=== PATIENT | female | born 1960 | race Caucasian/White ===

== ENCOUNTER 2022-12-18 11:46 | Emergency (ER) | payer MEDICAID, SELFPAY ==
[2022-12-18 11:49] VITALS: BP 151/93; PULSE 91; RESP 24; TEMP 36.8; O2SAT 94; BMI 27.0
--- NOTE | 2022-12-18 11:54 | XR_ITS ---
The [address] [address] Patient Name: CLAUDIO CONKLIN MRN: [id number] date: 1960 Sex: F Assigned Patient Location: ER Current Patient Location: ER Accession/Order Number: [id number] Exam Date: 12/18/2022 12:00 Report Date: 12/18/2022 12:30 At the request of: MATHIEU ISABEL Procedure: XR chest 2V EXAMINATION: XR chest 2V, XR ribs RT 2V 12/18/2022 9:26 AM PDT HISTORY: fall rib pain COMPARISONS: PET/CT 04/01/[address] 08/02/2019. FINDINGS: Lines and tubes: None. Heart and mediastinum: The heart and the mediastinum are normal for technique. Lungs and pleura: The lungs are clear. There is no evidence of pneumonia or pulmonary edema. There is no pleural effusion or pneumothorax. Bones: No acute osseous abnormality. RIGHT RIBS: Healed right-sided rib fractures noted. No acute appearing displaced rib fracture. IMPRESSION: 1. No acute cardiopulmonary disease. 2. Healed right-sided rib fractures are present. No acute appearing displaced right rib fracture demonstrated. Electronically authenticated by: CHRISTIANA WOODWARD Date: 12/18/2022 12:30
--- NOTE | 2022-12-18 11:54 | XR_ITS ---
The [address] [address] Patient Name: CLAUDIO CONKLIN MRN: [id number] date: 1960 Sex: F Assigned Patient Location: ER Current Patient Location: ER Accession/Order Number: [id number] Exam Date: 12/18/2022 12:00 Report Date: 12/18/2022 12:30 At the request of: MATHIEU ISABEL Procedure: XR ribs RT 2V EXAMINATION: XR chest 2V, XR ribs RT 2V 12/18/2022 9:26 AM PDT HISTORY: fall rib pain COMPARISONS: PET/CT 04/01/[address] 08/02/2019. FINDINGS: Lines and tubes: None. Heart and mediastinum: The heart and the mediastinum are normal for technique. Lungs and pleura: The lungs are clear. There is no evidence of pneumonia or pulmonary edema. There is no pleural effusion or pneumothorax. Bones: No acute osseous abnormality. RIGHT RIBS: Healed right-sided rib fractures noted. No acute appearing displaced rib fracture. IMPRESSION: 1. No acute cardiopulmonary disease. 2. Healed right-sided rib fractures are present. No acute appearing displaced right rib fracture demonstrated. Electronically authenticated by: CHRISTIANA WOODWARD Date: 12/18/2022 12:30
--- NOTE | 2022-12-18 11:56 | ED_ITS ---
HPI - Fall General Chief Complaint: Fall Stated Complaint: RIB PAIN FALL Time Seen by Provider: 12/18/22 11:56 Source: patient Mode of arrival: walk-in Limitations: no limitations History of Present Illness HPI Narrative: patient's here for injury to her right ribs after a fall this morning. She believes she just rolled out of bed this morning before really getting up. She does not any pain in her hip or the other extremities per the nursing record. He does have other medical problems as noted however does not have any shortness of breath or anterior chest pain today. the patient states she did not hit her h ead and has no pain in her neck. She's says she was restless because she was exhausted from a family yesterday. She has previous rib fractures on the right side number of years ago. She says it hurts to take a deep breath but doesn't really have any shortness of breath. MD complaint: Reports fall Prolonged down time: Reports no Symptoms prior to fall: Reports none Location of injury: Reports chest Related Data Home Medications Medication Instructions Recorded Confirmed albuterol sulfate 90 mcg/actuation 2 inh inhalation BID PRN shortness 12/18/22 12/18/22 aerosol inhaler (Ventolin HFA) of breath or wheezing alendronate 70 mg tablet 70 mg PO QWEEK 12/18/22 12/18/22 budesonide-formoterol HFA 80 2 inh inhalation BID 12/18/22 12/18/22 mcg-4.5 mcg/actuation aerosol inhaler (Symbicort) bupropion HCl 150 mg tablet,12 hr 150 mg PO BID 12/18/22 12/18/22 sustained-release calcium carbonate 500 mg calcium 500 mg PO BID 12/18/22 12/18/22 (1,250 mg) tablet (Oyster Shell Calcium) cyclobenzaprine 5 mg tablet 5 mg PO DAILY 12/18/22 12/18/22 ferrous fumarate 324 mg (106 mg 324 mg PO DAILY 12/18/22 12/18/22 iron) tablet gabapentin 300 mg capsule 300 mg PO BID 12/18/22 12/18/22 hydrocodone 5 mg-acetaminophen 325 1 tab PO Q12H 12/18/22 12/18/22 mg tablet lisinopril 30 mg tablet 30 mg PO DAILY 12/18/22 12/18/22 omeprazole 20 mg tablet,delayed 20 mg PO DAILY 12/18/22 12/18/22 release sumatriptan succinate 25 mg tablet 25 mg PO Q2H PRN migraine headache 12/18/22 12/18/22 (Imitrex) Previous Rx's Medication Instructions Recorded cyclobenzaprine 10 mg tablet 10 mg PO TID PRN muscle spasm #10 12/20/22 tabs lidocaine 5 % topical patch 1 patch topical Q24H #15 ea 12/20/22 (Lidoderm) Allergies Allergy/AdvReac Type Severity Reaction Status Date / Time ibuprofen Allergy Intermediate Verified 12/18/22 11:53 latex Allergy Intermediate Verified 12/18/22 11:53 sertraline [From Zoloft] Allergy Intermediate Verified 12/18/22 11:53 Exam Narrative Exam Narrative: awake alert modestly uncomfortable. No acute shortness of breath but does have underlying lung disease Constitutional Vital Signs - 24 hr 12/18/22 11:49 Temperature 98.3 F Pulse Rate [Monitor] 91 H Respiratory Rate 24 Blood Pressure [Left Arm] 151/93 H Pulse Oximetry 94 L Oxygen Delivery Method Room Air Common normals: oriented x3 Nutritional appearance: thin Neck & C-Spine Common normals: full ROM and supple General: no tenderness Cervical spine: cervical ROM normal Respiratory Common normals: normal respiratory effort, no retractions, no use of accessory muscles and clear to auscultation bilaterally Effort & inspection: able to speak in complete sentences Back & Pelvis Common normals: no CVA tenderness and thoracic and lumbar spine normal to inspection Course Vital Signs Vital signs: Vital Signs Temperature 98.3 F 12/18/22 11:49 Pulse Rate 91 H 12/18/22 11:49 Respiratory Rate 24 12/18/22 11:49 Blood Pressure 151/93 H 12/18/22 11:49 Pulse Oximetry 94 L 12/18/22 11:49 Oxygen Delivery Method Room Air 12/18/22 11:49 Temperature 98.3 F 12/18/22 11:49 Pulse Rate 77 12/18/22 12:50 Respiratory Rate 22 12/18/22 12:50 Blood Pressure 136/92 H 12/18/22 12:50 Pulse Oximetry 96 12/18/22 12:50 Oxygen Delivery Method Room Air 12/18/22 12:50 MDM - Fall MDM Narrative Medical decision making narrative: patient had an uncomplicated fall area do not believe there is any other cofactor such as syncope or cardiovascular collapse contributing to this event. Isolated injury to the right chest wall with normal chest x-rays. We will need analgesics. Old fractures noted. Discharge Plan Discharge Chief Complaint: Fall Clinical Impression: Chest wall contusion Patient Disposition: Home, Self-Care Time of Disposition Decision: 12:38 Mode of Transportation: Private Vehicle Prescriptions / Home Meds: No Action bupropion HCl 150 mg tablet sustained-release 12 hr 150 mg PO BID lisinopril 30 mg tablet 30 mg PO DAILY omeprazole 20 mg tablet,delayed release (DR/EC) 20 mg PO DAILY calcium carbonate [Oyster Shell Calcium] 500 mg calcium (1,250 mg) tablet 500 mg PO BID gabapentin 300 mg capsule 300 mg PO BID cyclobenzaprine 5 mg tablet 5 mg PO DAILY alendronate 70 mg tablet 70 mg PO QWEEK budesonide-formoterol [Symbicort] 80-4.5 mcg/actuation HFA aerosol inhaler 2 inh inhalation BID ferrous fumarate 324 mg (106 mg iron) tablet 324 mg PO DAILY sumatriptan succinate [Imitrex] 25 mg tablet 25 mg PO Q2H PRN (Reason: migraine headache) Rx Instructions: do not exceed 8 doses per 24 hrs albuterol sulfate [Ventolin HFA] 90 mcg/actuation HFA aerosol inhaler 2 inh inhalation BID PRN (Reason: shortness of breath or wheezing) hydrocodone-acetaminophen 5-325 mg tablet 1 tab PO Q12H cyclobenzaprine 10 mg tablet 10 mg PO TID PRN (Reason: muscle spasm) Qty: 10 0RF lidocaine [Lidoderm] 5 % adhesive patch,medicated 1 patch topical Q24H Qty: 15 0RF Rx Instructions: leave on most painful area for up to 12 hrs Instructions: Rib Contusion (ED) Additional Instructions: Rx given for Vicodin unlimited basis Stand Alone Forms: Portal Instructions Referrals: Physician,Non-Staff, MD [Primary Care Provider] - 1 week Discharge Date/Time: 12/18/22 12:52
[2022-12-18 12:50] VITALS: BP 136/92; PULSE 77; RESP 22; O2SAT 96
== END 2022-12-18 12:52 | disposition home or self-care (01) ==
PROVIDERS: Emergency Provider Emergency Medicine Emergency Medical Services
DX: S20.219A Contusion of unspecified front wall of thorax, initial encounter (principal); W06.XXXA Fall from bed, initial encounter; Z79.899 Other long term (current) drug therapy
CPT/HCPCS: 71046; 71100; 99284

== ENCOUNTER 2022-12-20 15:13 | Emergency (ER) | payer MEDICAID, SELFPAY ==
[2022-12-20 15:18] VITALS: BP 137/90; PULSE 92; RESP 20; TEMP 36.7; O2SAT 97; BMI 27.0
--- NOTE | 2022-12-20 16:41 | XR_ITS ---
The [address] [address] Patient Name: CLAUDIO CONKLIN MRN: [id number] date: 1960 Sex: F Assigned Patient Location: ER Current Patient Location: ER Accession/Order Number: [id number] Exam Date: 12/20/2022 16:48 Report Date: 12/20/2022 17:14 At the request of: ARCELIA MEYER Procedure: XR ribs RT min 3V w CXR1V EXAM: XR ribs RT min 3V w CXR1V HISTORY: rib w chest COMPARISON: None. TECHNIQUE: 4 view study FINDINGS: There are nondisplaced transverse fractures of the anterolateral right third, fourth, and fifth ribs. The lung grove are well-expanded and clear. The cardiovascular silhouette is normal. IMPRESSION: Nondisplaced right third, fourth, and fifth rib fractures. Electronically authenticated by: Dejuan WILCOX Date: 12/20/2022 17:14
--- NOTE | 2022-12-20 17:11 | ED_ITS ---
HPI - General Adult General Chief complaint: Upper Respiratory Infection Stated complaint: diff breathing-pain management Time Seen by Provider: 12/20/22 16:41 Source: patient Mode of arrival: walk-in Limitations: no limitations History of Present Illness HPI narrative: 62-year-old female comes in with a chief complaint of right-sided chest wall pain. She sustained a fall several days ago was seen in the emergency room and diagnosed with rib contusion. Since that time since difficulty taking deep breaths and now has developed cough. She states she quit smoking four months ago. Her concern is that she has a pneumonia or questionable rib fracture that was not seen previously. Lung sounds are clear diminished throughout with loose nonproductive cough Related Data Home Medications Medication Instructions Recorded Confirmed albuterol sulfate 90 mcg/actuation 2 inh inhalation BID PRN shortness 12/18/22 12/18/22 aerosol inhaler (Ventolin HFA) of breath or wheezing alendronate 70 mg tablet 70 mg PO QWEEK 12/18/22 12/18/22 budesonide-formoterol HFA 80 2 inh inhalation BID 12/18/22 12/18/22 mcg-4.5 mcg/actuation aerosol inhaler (Symbicort) bupropion HCl 150 mg tablet,12 hr 150 mg PO BID 12/18/22 12/18/22 sustained-release calcium carbonate 500 mg calcium 500 mg PO BID 12/18/22 12/18/22 (1,250 mg) tablet (Oyster Shell Calcium) cyclobenzaprine 5 mg tablet 5 mg PO DAILY 12/18/22 12/18/22 ferrous fumarate 324 mg (106 mg 324 mg PO DAILY 12/18/22 12/18/22 iron) tablet gabapentin 300 mg capsule 300 mg PO BID 12/18/22 12/18/22 hydrocodone 5 mg-acetaminophen 325 1 tab PO Q12H 12/18/22 12/18/22 mg tablet lisinopril 30 mg tablet 30 mg PO DAILY 12/18/22 12/18/22 omeprazole 20 mg tablet,delayed 20 mg PO DAILY 12/18/22 12/18/22 release sumatriptan succinate 25 mg tablet 25 mg PO Q2H PRN migraine headache 12/18/22 12/18/22 (Imitrex) Previous Rx's Medication Instructions Recorded cyclobenzaprine 10 mg tablet 10 mg PO TID PRN muscle spasm #10 12/20/22 tabs lidocaine 5 % topical patch 1 patch topical Q24H #15 ea 12/20/22 (Lidoderm) Allergies Allergy/AdvReac Type Severity Reaction Status Date / Time ibuprofen Allergy Intermediate Verified 12/18/22 11:53 latex Allergy Intermediate Verified 12/18/22 11:53 sertraline [From Zoloft] Allergy Intermediate Verified 12/18/22 11:53 Review of Systems ROS Narrative All Systems are negative except as noted/marked.All systems reviewed and otherwise negative Exam Narrative Exam Narrative: General: The patient appears well and in no apparent distress. Patient is resting comfortably on cart. Skin: Warm, dry, no pallor noted. There is no rash noted. Head: Normocephalic, atraumatic Eye: Normal conjunctiva, no drainage, EOMI. PERRL Ears, Nose, Mouth, and Throat: oral mucosa is moist. Nares patent. Mouth without vesicles. Ear canals patent. Tm's without Erythema Cardiovascular: Regular Rate and Rhythm Respiratory: dry nonprod cough, no wheezing or rhonchi, chest wall tenderness palpation right lower lobe, no crepitus .Patient is in no distress, no accessory muscle use, lungs are clear to auscultation, Back: non-tender, no CVA tenderness bilaterally to percussion. Musculoskeletal: The patient has no evidence of calf tenderness, no pitting edema, symmetrical pulses noted bilaterally Neurological: A&O x4, normal speech Psychiatric: Cooperative Constitutional Vital Signs - 24 hr 12/20/22 15:18 12/20/22 17:23 12/20/22 17:39 Temperature 98.0 F Pulse Rate [Monitor] 92 H Respiratory Rate 20 Blood Pressure [Left Arm] 137/90 H Pulse Oximetry 97 98 Oxygen Delivery Method Room Air Room Air Room Air Course Vital Signs Vital signs: Vital Signs Temperature 98.0 F 12/20/22 15:18 Pulse Rate 92 H 12/20/22 15:18 Respiratory Rate 20 12/20/22 15:18 Blood Pressure 137/90 H 12/20/22 15:18 Pulse Oximetry 97 12/20/22 15:18 Oxygen Delivery Method Room Air 12/20/22 15:18 Temperature 98.0 F 12/20/22 15:18 Pulse Rate 92 H 12/20/22 15:18 Respiratory Rate 20 06/08/23 15:18 Blood Pressure 137/90 H 12/20/22 15:18 Pulse Oximetry 98 12/20/22 17:23 Oxygen Delivery Method Room Air 12/20/22 17:39 Medical Decision Making [facility] Narrative Medical decision making narrative: She returns with continued pain to the right side was diagnosed with rib contusions several days ago. X-rays repeated shows three rib fractures. Patient be discharged home with [place] Robaxin and Lidoderm patch. Also given Pep therapy. Splinting with coughing was also discussed with the patient patient's encouraged to take deep breaths hourly. Follow-up with her primary care physician as scheduled next week Discharge Plan Discharge Chief Complaint: Upper Respiratory Infection Clinical Impression: Fracture, ribs Patient Disposition: Home, Self-Care Time of Disposition Decision: 17:35 Condition: Good Prescriptions / Home Meds: New cyclobenzaprine 10 mg tablet 10 mg PO TID PRN (Reason: muscle spasm) Qty: 10 0RF lidocaine [Lidoderm] 5 % adhesive patch,medicated 1 patch topical Q24H Qty: 15 0RF Rx Instructions: leave on most painful area for up to 12 hrs No Action bupropion HCl 150 mg tablet sustained-release 12 hr 150 mg PO BID lisinopril 30 mg tablet 30 mg PO DAILY omeprazole 20 mg tablet,delayed release (DR/EC) 20 mg PO DAILY calcium carbonate [Oyster Shell Calcium] 500 mg calcium (1,250 mg) tablet 500 mg PO BID gabapentin 300 mg capsule 300 mg PO BID cyclobenzaprine 5 mg tablet 5 mg PO DAILY alendronate 70 mg tablet 70 mg PO QWEEK budesonide-formoterol [Symbicort] 80-4.5 mcg/actuation HFA aerosol inhaler 2 inh inhalation BID ferrous fumarate 324 mg (106 mg iron) tablet 324 mg PO DAILY sumatriptan succinate [Imitrex] 25 mg tablet 25 mg PO Q2H PRN (Reason: migraine headache) Rx Instructions: do not exceed 8 doses per 24 hrs albuterol sulfate [Ventolin HFA] 90 mcg/actuation HFA aerosol inhaler 2 inh inhalation BID PRN (Reason: shortness of breath or wheezing) hydrocodone-acetaminophen 5-325 mg tablet 1 tab PO Q12H Instructions: Rib Fracture (ED) Stand Alone Forms: Portal Instructions Referrals: Physician,Non-Staff, MD [Primary Care Provider] - 1 week Discharge Date/Time: 12/20/22 17:46
[2022-12-20] MEDS: IPRATROPIUM/ALBUTEROL SULFATE 3 ML AMPUL.NEB IH (17:19)
[2022-12-20 17:23] VITALS: O2SAT 98
--- NOTE | 2022-12-20 17:29 | ED.GENADUL1 ---
HPI - General Adult General Chief complaint: Upper Respiratory Infection Stated complaint: diff breathing-pain management Time Seen by Provider: 12/20/22 16:41 Source: patient Mode of arrival: walk-in Limitations: no limitations Related Data Home Medications Medication Instructions Recorded Confirmed albuterol sulfate 90 mcg/actuation 2 inh inhalation BID PRN shortness 12/18/22 12/18/22 aerosol inhaler (Ventolin HFA) of breath or wheezing alendronate 70 mg tablet 70 mg PO QWEEK 12/18/22 12/18/22 budesonide-formoterol HFA 80 2 inh inhalation BID 12/18/22 12/18/22 mcg-4.5 mcg/actuation aerosol inhaler (Symbicort) bupropion HCl 150 mg tablet,12 hr 150 mg PO BID 12/18/22 12/18/22 sustained-release calcium carbonate 500 mg calcium 500 mg PO BID 12/18/22 12/18/22 (1,250 mg) tablet (Oyster Shell Calcium) cyclobenzaprine 5 mg tablet 5 mg PO DAILY 12/18/22 12/18/22 ferrous fumarate 324 mg (106 mg 324 mg PO DAILY 12/18/22 12/18/22 iron) tablet gabapentin 300 mg capsule 300 mg PO BID 12/18/22 12/18/22 hydrocodone 5 mg-acetaminophen 325 1 tab PO Q12H 12/18/22 12/18/22 mg tablet lisinopril 30 mg tablet 30 mg PO DAILY 12/18/22 12/18/22 omeprazole 20 mg tablet,delayed 20 mg PO DAILY 12/18/22 12/18/22 release sumatriptan succinate 25 mg tablet 25 mg PO Q2H PRN migraine headache 12/18/22 12/18/22 (Imitrex) Allergies Allergy/AdvReac Type Severity Reaction Status Date / Time ibuprofen Allergy Intermediate Verified 12/18/22 11:53 latex Allergy Intermediate Verified 12/18/22 11:53 sertraline [From Zoloft] Allergy Intermediate Verified 12/18/22 11:53 Exam Constitutional Vital Signs - 24 hr 12/20/22 15:18 12/20/22 17:23 Temperature 98.0 F Pulse Rate [Monitor] 92 H Respiratory Rate 20 Blood Pressure [Left Arm] 137/90 H Pulse Oximetry 97 98 Oxygen Delivery Method Room Air Room Air Course Vital Signs Vital signs: Vital Signs Temperature 98.0 F 12/20/22 15:18 Pulse Rate 92 H 12/20/22 15:18 Respiratory Rate 20 12/20/22 15:18 Blood Pressure 137/90 H 12/20/22 15:18 Pulse Oximetry 97 12/20/22 15:18 Oxygen Delivery Method Room Air 12/20/22 15:18 Temperature 98.0 F 12/20/22 15:18 Pulse Rate 92 H 12/20/22 15:18 Respiratory Rate 20 12/20/22 15:18 Blood Pressure 137/90 H 12/20/22 15:18 Pulse Oximetry 98 12/20/22 17:23 Oxygen Delivery Method Room Air 12/20/22 17:23 Discharge Plan Discharge Chief Complaint: Upper Respiratory Infection Prescriptions / Home Meds: No Action bupropion HCl 150 mg tablet sustained-release 12 hr 150 mg PO BID lisinopril 30 mg tablet 30 mg PO DAILY omeprazole 20 mg tablet,delayed release (DR/EC) 20 mg PO DAILY calcium carbonate [Oyster Shell Calcium] 500 mg calcium (1,250 mg) tablet 500 mg PO BID gabapentin 300 mg capsule 300 mg PO BID cyclobenzaprine 5 mg tablet 5 mg PO DAILY alendronate 70 mg tablet 70 mg PO QWEEK budesonide-formoterol [Symbicort] 80-4.5 mcg/actuation HFA aerosol inhaler 2 inh inhalation BID ferrous fumarate 324 mg (106 mg iron) tablet 324 mg PO DAILY sumatriptan succinate [Imitrex] 25 mg tablet 25 mg PO Q2H PRN (Reason: migraine headache) Rx Instructions: do not exceed 8 doses per 24 hrs albuterol sulfate [Ventolin HFA] 90 mcg/actuation HFA aerosol inhaler 2 inh inhalation BID PRN (Reason: shortness of breath or wheezing) hydrocodone-acetaminophen 5-325 mg tablet 1 tab PO Q12H Referrals: Physician,Non-Staff, MD [Primary Care Provider] - 1 week
== END 2022-12-20 17:46 | disposition home or self-care (01) ==
PROVIDERS: Emergency Provider Emergency Medicine
DX: S22.41XA Multiple fractures of ribs, right side, initial encounter for closed fracture (principal); W19.XXXA Unspecified fall, initial encounter; Z87.891 Personal history of nicotine dependence; Z79.899 Other long term (current) drug therapy
CPT/HCPCS: 71101; 94640; 94667; 99283

== ENCOUNTER 2023-02-19 12:57 | Emergency (ER) | payer MEDICAID, SELFPAY ==
[2023-02-19 12:59] VITALS: BP 137/88; PULSE 68; RESP 20; TEMP 36.4; O2SAT 97; BMI 27.5
--- NOTE | 2023-02-19 13:08 | XR_ITS ---
The [address] [address] Patient Name: CLAUDIO CONKLIN MRN: [id number] date: 1960 Sex: F Assigned Patient Location: ER Current Patient Location: ER Accession/Order Number: [id number] Exam Date: 02/19/2023 13:13 Report Date: 02/19/2023 13:46 At the request of: DUKE BAKER Procedure: XR ribs RT min 3V w CXR1V Ribs EXAM: XR ribs RT min 3V w CXR1V HISTORY: fall COMPARISON: 12/20/2022 TECHNIQUE: Chest, single view. Right rib series with 5 images obtained. FINDINGS: Lungs/pleura: No consolidation, effusion, or pneumothorax. Bones: There is a mildly displaced fracture of the posterior segment of the right third rib. Redemonstration of bilateral anterior third-fifth chronic rib fracture deformities. XR/XR ribs RT min 3V w CXR1V IMPRESSION: a mildly displaced fracture of the posterior segment of the right third rib. Electronically authenticated by: NICOLE HERNANDEZ Date: 02/19/2023 13:46
--- NOTE | 2023-02-19 13:08 | XR_ITS ---
The [address] [address] Patient Name: CLAUDIO CONKLIN MRN: [id number] date: 1960 Sex: F Assigned Patient Location: ER Current Patient Location: ER Accession/Order Number: [id number] Exam Date: 02/19/2023 13:13 Report Date: 02/19/2023 13:39 At the request of: DUKE BAKER Procedure: XR shoulder RT min 2V EXAM: XR shoulder RT min 2V HISTORY: fall out of bed this morning, now with pain. COMPARISON: None. TECHNIQUE: 3 views of the right shoulder were obtained. FINDINGS: There is no apparent acute fracture or dislocation involving the shoulder. There is mild narrowing of the acromioclavicular joint. The glenohumeral joint is relatively intact. No abnormal soft tissue calcifications are present. A small calcification or possibly remote chip fracture seen along the medial aspect of the coracoid process. Healing or healed rib fractures are noted on the right. XR/XR shoulder RT min 2V IMPRESSION: No apparent acute fracture or dislocation. The small fracture fragment along the medial aspect of the coracoid process was probably present in the prior chest x-ray. Healing or healed rib fractures are noted on the right. Direct comparison with a prior x-ray studies of the shoulder may be helpful. Electronically authenticated by: ROBERTO GOMEZ Date: 02/19/2023 13:39
--- NOTE | 2023-02-19 13:10 | ED.GENADUL1 ---
HPI - General Adult General Chief complaint: Extremity Injury, Upper Stated complaint: FALL Time Seen by Provider: 02/19/23 13:00 Source: patient Mode of arrival: Wheelchair Limitations: no limitations History of Present Illness HPI narrative: 62-year-old female presents for right rib and right shoulder pain. During the night she rolled out of bed and landed on her right side. She didn't hit her head and hit the floor, no furniture. She complains of pain to the right posterior rib region and the right shoulder. No hip pain or headache or neck pain. The pain is moderate to severe. She broke some ribs a few months ago and has just now got back to the point where it's healed. Related Data Home Medications Medication Instructions Recorded Confirmed albuterol sulfate 90 mcg/actuation 2 inh inhalation BID PRN shortness 12/18/22 12/18/22 aerosol inhaler (Ventolin HFA) of breath or wheezing alendronate 70 mg tablet 70 mg PO QWEEK 12/18/22 12/18/22 budesonide-formoterol HFA 80 2 inh inhalation BID 12/18/22 12/18/22 mcg-4.5 mcg/actuation aerosol inhaler (Symbicort) bupropion HCl 150 mg tablet,12 hr 150 mg PO BID 12/18/22 12/18/22 sustained-release calcium carbonate 500 mg calcium 500 mg PO BID 12/18/22 12/18/22 (1,250 mg) tablet (Oyster Shell Calcium) cyclobenzaprine 5 mg tablet 5 mg PO DAILY 12/18/22 12/18/22 ferrous fumarate 324 mg (106 mg 324 mg PO DAILY 12/18/22 12/18/22 iron) tablet gabapentin 300 mg capsule 300 mg PO BID 12/18/22 12/18/22 hydrocodone 5 mg-acetaminophen 325 1 tab PO Q12H 12/18/22 12/18/22 mg tablet lisinopril 30 mg tablet 30 mg PO DAILY 12/18/22 12/18/22 omeprazole 20 mg tablet,delayed 20 mg PO DAILY 12/18/22 12/18/22 release sumatriptan succinate 25 mg tablet 25 mg PO Q2H PRN migraine headache 12/18/22 12/18/22 (Imitrex) Previous Rx's Medication Instructions Recorded cyclobenzaprine 10 mg tablet 10 mg PO TID PRN muscle spasm #10 12/20/22 tabs lidocaine 5 % topical patch 1 patch topical Q24H #15 ea 12/20/22 (Lidoderm) acetaminophen 300 mg-codeine 30 mg 1 tab PO Q6H PRN pain #20 tabs 02/19/23 tablet Allergies Allergy/AdvReac Type Severity Reaction Status Date / Time ibuprofen Allergy Intermediate Verified 12/18/22 11:53 latex Allergy Intermediate Verified 12/18/22 11:53 sertraline [From Zoloft] Allergy Intermediate Verified 12/18/22 11:53 Review of Systems ROS Narrative A ten point review of systems is negative except as noted above. PFSH PFSH Social History Smoking status: Former smoker Exam Narrative Exam Narrative: Nurses note and vital signs reviewed and patient is not hypoxic. General: The patient appears uncomfortable. She is sitting upright on the side of the cart. Skin: Warm, dry, no pallor noted. There is no rash noted. Head: Normocephalic, atraumatic Eye: Normal conjunctiva, no drainage Ears, Nose, Mouth, and Throat: oral mucosa is moist. Nares patent. Cardiovascular: Regular Rate and Rhythm Respiratory: Patient is in no distress, no accessory muscle use, lungs are clear to auscultation, no wheezing, rales or rhonchi Back: her back is examined. She has some tenderness in the right thoracic region posteriorly. There is no crepitus bruise or abrasion. GI: soft and nontender Musculoskeletal: right hip is nontender. Right elbow and wrist are nontender. She is reluctant to move her right shoulder. This may be due to the rib pain. Neurological: A&O, normal speech Psychiatric: Cooperative Constitutional Vital Signs, click to edit/add: Last Vital Signs Temp 97.6 F 02/19/23 12:59 Pulse 68 02/19/23 12:59 Resp 20 02/19/23 12:59 BP 137/88 02/19/23 12:59 Pulse Ox 97 02/19/23 12:59 Course Vital Signs Vital signs: Vital Signs Temperature 97.6 F 02/19/23 12:59 Pulse Rate 68 02/19/23 12:59 Respiratory Rate 20 02/19/23 12:59 Blood Pressure 137/88 02/19/23 12:59 Pulse Oximetry 97 02/19/23 12:59 Temperature 97.6 F 02/19/23 12:59 Pulse Rate 68 02/19/23 12:59 Respiratory Rate 20 02/19/23 12:59 Blood Pressure 137/88 02/19/23 12:59 Pulse Oximetry 97 02/19/23 12:59 Medical Decision Making MDM Narrative Medical decision making narrative: a single rib fracture is identified. No pneumothorax. We discussed the safety features in the home. She'll follow-up with her family physician. treatment diagnosis and follow-up were discussed with the patient and her doctor. I do not have clinical suspicion of further intrathoracic injury. Differential Diagnosis Differential Diagnosis: rib fracture, chest contusion, pneumothorax Imaging Data rib x-ray: Radiologist's impression: right 3rd rib fracture and old healed fracture Discharge Plan Discharge Chief Complaint: Extremity Injury, Upper Clinical Impression: Fracture, ribs Patient Disposition: Home, Self-Care Time of Disposition Decision: 14:10 Condition: Good Mode of Transportation: Private Vehicle Prescriptions / Home Meds: New acetaminophen-codeine 300-30 mg tablet 1 tab PO Q6H PRN (Reason: pain) Qty: 20 0RF No Action bupropion HCl 150 mg tablet sustained-release 12 hr 150 mg PO BID lisinopril 30 mg tablet 30 mg PO DAILY omeprazole 20 mg tablet,delayed release (DR/EC) 20 mg PO DAILY calcium carbonate [Oyster Shell Calcium] 500 mg calcium (1,250 mg) tablet 500 mg PO BID gabapentin 300 mg capsule 300 mg PO BID cyclobenzaprine 5 mg tablet 5 mg PO DAILY alendronate 70 mg tablet 70 mg PO QWEEK budesonide-formoterol [Symbicort] 80-4.5 mcg/actuation HFA aerosol inhaler 2 inh inhalation BID ferrous fumarate 324 mg (106 mg iron) tablet 324 mg PO DAILY sumatriptan succinate [Imitrex] 25 mg tablet 25 mg PO Q2H PRN (Reason: migraine headache) Rx Instructions: do not exceed 8 doses per 24 hrs albuterol sulfate [Ventolin HFA] 90 mcg/actuation HFA aerosol inhaler 2 inh inhalation BID PRN (Reason: shortness of breath or wheezing) hydrocodone-acetaminophen 5-325 mg tablet 1 tab PO Q12H cyclobenzaprine 10 mg tablet 10 mg PO TID PRN (Reason: muscle spasm) Qty: 10 0RF lidocaine [Lidoderm] 5 % adhesive patch,medicated 1 patch topical Q24H Qty: 15 0RF Rx Instructions: leave on most painful area for up to 12 hrs Instructions: Rib Fracture (ED) Stand Alone Forms: Portal Instructions Referrals: Physician,Non-Staff, MD [Primary Care Provider] - 1 week
[2023-02-19] MEDS: KETOROLAC TROMETHAMINE 60 MG/2 ML VIAL IM (13:37)
== END 2023-02-19 14:30 | disposition home or self-care (01) ==
PROVIDERS: Emergency Provider Emergency Medicine
DX: S22.31XA Fracture of one rib, right side, initial encounter for closed fracture (principal); W06.XXXA Fall from bed, initial encounter; Z79.899 Other long term (current) drug therapy; Z87.891 Personal history of nicotine dependence
CPT/HCPCS: 71101; 73030; 96372; 99284

== ENCOUNTER 2024-01-06 12:44 | Outpatient (OUT) | payer MEDICAID, SELFPAY ==
--- NOTE | 2024-01-06 12:50 | VEIN_ITS ---
[facility] [id number] Patient Name: CLAUDIO CONKLIN MRN: [id number] date: 1960 Sex: F Assigned Patient Location: Current Patient Location: Accession/Order Number: [id number] Exam Date: 01/06/2024 12:51 Report Date: 01/06/2024 14:19 At the request of: CIPRIANO NGUYEN Procedure: VC SEGMENTAL PRESSURES EXAM: VC SEGMENTAL PRESSURES HISTORY: I73.9 Peripheral vascular disease COMPARISON: None. FINDINGS: Segmental pressures presented as follows (right, left) in mmHg. Brachial: 140, 156 Upper thigh: 183, 189 Lower thigh: 181, 168 Calf: 185, 187 DPA: 138, 169 [employer]: 182, 182 1st Toe: 127, 134 RUTH: 1.17, 1.17 TBI: 0.81, 0.86 The ABIs are Normal The TBI's are normal PVR waveforms: Right leg: Thigh: Normal Above knee: Normal Below knee: Normal Right ankle: Normal Left leg: Thigh: Normal Above knee: Normal Below knee: Normal Right ankle: Normal VEIN/VC SEGMENTAL PRESSURES IMPRESSION: Normal exam Electronically authenticated by: CIPRIANO NGUYEN Date: 01/06/2024 14:19
--- NOTE | 2024-01-06 12:50 | VEIN_ITS ---
Patient Name: CLAUDIO CONKLIN MR#: [id number] : 1960 Exam Date: 01/06/2024 Ordering Doctor: DR BENSON HERNANDEZ M.D. RADIOLOGY REPORT PROCEDURE: [facility] - OFFICE VISIT INITIAL COMPARISON: None. PROGRESS NOTES: 63-year-old female who presents with a 3 year history of lower extremity pain and swelling most significant along the medial right ankle. The patient rates the pain as a 7 on a scale of 1-10 describing the pain as aching and burning. Patient's symptoms are exacerbated by her prolonged sitting and standing and partially relieved by rest, leg elevation and compression stockings which she has worn for several years. The patient has also taken over the counter Tylenol. The patient reports multiple episodes of cellulitis treated with antibiotics and not requiring hospitalization. The patient is referred here by her nurse practitioner. The patient has hypertension and has been treated with a diuretic without success. The patient denies any signs and symptoms to suggest arterial ischemia. The patient describes a family history significant for hypertension diabetes cancer in her father. Arthritis in her mother. Varicose veins in a sister. . Occasional social alcohol use. The patient has a 50 pack year history of smoking, discontinuing 18 months ago. Past medical history significant for asthma, arthritis, GERD, hypertension, hypercholesterolemia, right leg cellulitis, COPD, hypertension. Past surgical history significant for cholecystectomy, tonsillectomy, appendectomy, hysterectomy and left knee arthroscopy. No history of deep venous thrombus or pulmonary embolus. See separate history and physical for medication list. No prior treatment for varicose or spider veins. After review of nurse notes, history and physical exam I discussed at length the pathophysiology of venous hypertension and possible treatments, therapies and strategies available. We discussed at length the importance of elevating the lower extremities above the level of the heart, increased physical activity and compression stocking use. I discussed with the patient that her vein disease was mild and I did not feel that venous laser ablation was necessary at this time. I did offer the patient injection sclerotherapy which in light of her physical exam could benefit her right leg. The patient's insurance will not pay for this procedure the patient is unable to have a self pay procedure. Ultrasound venous reflux study performed the same day was discussed at length with the patient. The report demonstrates mild bilateral great saphenous vein venous insufficiency. Bilateral deep vein reflux. The patient's segmental pressures exam is normal PHYSICAL EXAM: The right leg demonstrates scattered moderate reticular and spider veins most significant along the lower leg and ankle. Mild subcutaneous edema. No active ulceration. No skin discoloration The left leg demonstrates scattered mild reticular and spider veins. No subcutaneous edema. No active ulceration. No skin discoloration Both thighs, legs and feet were symmetrically warm to the touch. Good posterior tibial and dorsalis pedis pulses were present bilaterally. VEIN/VC Facility EST Comprehensive IMPRESSION: 1. No great saphenous vein venous insufficiency without dilatation 2. No significant lower extremity varicose veins. moderate right and mild left reticular and spider veins 3. Mild right lower extremity subcutaneous edema 4. No flow significant arterial disease 5. CEAP: C3, Ep, As, Pr PLAN: 1. No treatment at this time due to the patient's insurance coverage 2. Long-term use of 20-30 mm knee high compression stockings 3. Elevated legs and increased physical activity for symptomatic relief Nurse notes, history and physical were reviewed and confirmed, see attached forms. The nurse was present throughout the physical exam and consultation Dictated by: Benson Hernandez MD on 01/06/2024 at 14:42 Approved by: Benson Hernandez MD on 01/06/2024 at 14:48
--- NOTE | 2024-01-06 12:50 | VEIN_ITS ---
Patient Name: CLAUDIO CONKLIN MR#: [id number] : 1960 Exam Date: 01/06/2024 Ordering Doctor: DR BENSON HERNANDEZ M.D. RADIOLOGY REPORT PROCEDURE: VC EXT VENOUS REFLUX MAYA LMTD COMPARISON: None. INDICATIONS: I83.813 Bilateral painful varicose veins TECHNIQUE: Duplex imaging of the lower extremity to assess the deep and superficial venous system for the presence of deep or superficial venous incompetence and to document the location and severity of disease. The study includes evaluation of the great saphenous vein (GSV), anterior accessory saphenous vein (AASV) and small saphenous vein (SSV). Patient scanned in reverse Trendelenburg and standing. FINDINGS: RIGHT LOWER EXTREMITY: Saphenofemoral Junction Reflux: Yes 5.9mm 0.8 sec GSV: Diam (mm) Reflux/ Time (sec) Proximal Thigh 5.5 Yes 0.6 Mid Thigh 3.1 No Distal Thigh 2.9 Yes 2.1 Prox Calf 1.5 No Mid Calf 1.7 Yes 3.0 Saphenopopliteal Junction Reflux: 3.5mm Yes 0.5 SSV: Proximal Calf 3.0 Yes 0.3 Mid Calf 2.4 Yes 0.2 AASV: Proximal Thigh 2.6 Yes 0.4 Mid Thigh 1.7 Yes 0.3 Distal Thigh Thrombi: Chronic partial thrombus in mid SSV. Compressibility: Partial compression of SSV. Flow: Severe deep venous reflux in popliteal vein. Preforator: Proximal medial lower leg 2.6 mm with 0.4s reflux. Tech Note: Isoechoic area distal lateral lower leg measures 0.8 x 0.5 x 0.5 cm. Incompetent varicose vein mid medial lower leg measures 3.1 mm with 0.3s reflux. LEFT LOWER EXTREMITY: Saphenofemoral Junction Reflux: Yes 6.8 mm 0.9 sec GSV: Diam (mm) Reflux/Time (sec) Proximal Thigh 7.1 Yes 0.6 Mid Thigh 3.5 Yes 0.5 Distal Thigh 4.1 Yes 0.4 Prox Calf 2.7 No Mid Calf 2.5 Yes 4.5 Saphenopopliteal Junction Relux: 2.2 mm Yes 0.7 SSV: Proximal Calf 1.7 Yes 0.4 Mid Calf 1.8 No AASV: Proximal Thigh 1.6 Yes 0.5 Mid Thigh 1.5 Yes 1.2 Distal Thigh Thrombi: Chronic partial thrombus in mid SSV. Compressibility: Partial compression of SSV. Flow: Mild deep venous reflux. Cold Patcher: None. Tech Note: Varicose vein proximal medial lower leg measures 1.7 mm with 0.3s reflux. CONCLUSION: 1. Mild to moderate right and mild left great saphenous vein venous insufficiency without significant dilatation 2. Chronic bilateral superficial vein thrombus 3. Severe right and mild left deep vein reflux Dictated by: Benson Hernandez MD on 01/06/2024 at 13:56 Approved by: Benson Hernandez MD on 01/06/2024 at 14:00
== END 2024-01-06 12:45 | disposition home or self-care (01) ==
LOC: VC 12:45
DX: I73.9 Peripheral vascular disease, unspecified (principal); I83.813 Varicose veins of bilateral lower extremities with pain
CPT/HCPCS: 93923; 93970; G0463